=== PATIENT | male | born 1995 | race American Indian/Alaskan Native ===

== ENCOUNTER 2016-07-28 18:41 | Emergency (ER) | payer OTHER ==
--- NOTE | 2016-07-28 19:44 | Emergency Department Report ---
Chief Complaint: Nausea/Vomiting/Diarrhea Stated Complaint: STOMACH VIRUS Time Seen by Provider: 07/28/16 19:43 - HPI History of Present Illness: Patient here reports nausea and vomiting. Patient reports that he has a stomach virus. He said he had a virus before and it feels faint. Denies any diarrhea. Denies any blood in vomit. He said he ate [employer] and that's when it started. He said he vomited 4-5 times today. Complaint abdominal cramping lower abdomen at 8 out of 10. Denies Any urinary burning frequency or urgency. Denies any fever or chills. - ROS Review of Systems: All systems are negative unless stated in HPI above. - Exam Vital Signs: Vital Signs 07/28/16 19:04 Temperature 97.9 F Pulse Rate 75 Respiratory 16 Rate Blood Pressure 135/88 O2 Sat by Pulse 99 Oximetry Physical Exam: General: This is a 21-year-old male well-nourished well-developed in no acute distress. CV: S1, S2. Regular rate and rhythm. Abdomen: Tender to palpate pelvic area. No guarding or rebound tenderness. Normal bowel sounds and negative CVA tenderness MSE screening note: Focused history and physical exam performed. Due to findings the following was ordered:see mdm ED Medical Decision Making - Medical Decision Making Medical decision making: Patient seen by provider in triage area. Appropriate protocol activated and patient to main ED to be seen by physician. ED Disposition for MSE Condition: Stable
[2016-07-28 20:24] LABS: Basophils % (Auto) 0.1 % (0.0-1.8); Eosinophils % (Auto) 0.4 % (0.0-4.3); Hematocrit 54.3 % (35.5-45.6); Hemoglobin 18.2 gm/dl (11.8-15.2); Mean Corpuscular HGB Conc 34 % (32-34); Mean Corpuscular Hemoglobin 31 pg (28-32); Mean Corpuscular Volume 92 fl (84-94); Platelet Count 190 K/mm3 (140-440); Red Blood Count 5.92 M/mm3 (3.65-5.03); Red Cell Distribution Width 13.5 % (13.2-15.2); White Blood Count 8.5 K/mm3 (4.5-11.0)
[2016-07-28 20:53] LABS: BUN/Creatinine Ratio 11.81; Blood Urea Nitrogen 13 mg/dL (9-20); Calcium 9.2 mg/dL (8.4-10.2); Carbon Dioxide 30 mmol/L (22-30); Chloride 100.1 mmol/L (98-107); Glucose 101 mg/dL (75-100); Potassium 4.2 mmol/L (3.6-5.0); Sodium 142 mmol/L (137-145)
[2016-07-28 21:08] LABS: Anion Gap 16 mmol/L
[2016-07-28 21:37] LABS: Bilirubin,Urine NEG (Negative); Blood,Urine NEG (Negative); Ketones,Urine NEG (Negative); Leukocyte Esterase,Urine NEG (Negative); Mucus,Urine 1+ /HPF; Nitrite,Urine NEG (Negative); Protein,Urine <15 mg/dL mg/dL (Negative); Urobilinogen,Urine < 2.0 mg/dL (<2.0)
[2016-07-28] MEDS ORDERED: ZOFRAN ODT ONE (23:00)
[2016-07-28] MEDS ORDERED: ZOFRAN ODT PO ONE (23:02)
[2016-07-29 01:19] VITALS: BP 100/72
--- NOTE | 2016-07-29 02:41 | Emergency Department Report ---
ED N/V/D HPI - General Chief complaint: Nausea/Vomiting/Diarrhea Stated complaint: STOMACH VIRUS Time Seen by Provider: 07/29/16 01:52 Source: patient Mode of arrival: Ambulatory Limitations: No Limitations - History of Present Illness Initial comments: 21-year-old male witha past medical history presents to the hospital complaining of nausea, vomiting, diarrhea that started after eating [employer]. Patient had 3-4 episodes of vomiting and diarrhea. The planes of generalized intermittent 8/10 crampy abdominal pain. Denies hematemesis, fever, melena, or hematochezia. Received Zofran at approximately 11 PM after EMS she reports feeling better - Related Data Previous Rx's Medication Instructions Recorded Last Taken Type Promethazine [Phenergan TAB] 25 mg PO Q6HR PRN #20 tab 07/29/16 Unknown Rx Allergies Allergy/AdvReac Type Severity Reaction Status Date / Time No Known Allergies Allergy Verified 07/28/16 23:03 ED Review of Systems ROS: Stated complaint: STOMACH VIRUS Other details as noted in HPI Comment: All other systems reviewed and negative Other: Constitutional: No fevers chills Eyes: No eye pain visual changes ENT: No ear pain or throat pain Neck: Denies pain Respiratory: Denies cough wheezing shortness of breath Cardiovascular: Denies chest pain, palpitations, syncope GI: As per HPI : Denies dysuria, urinary frequency, or urgency Musculoskeletal: Denies back pain, joint swelling Skin: Denies rash, lesions, erythema Neurologic: Denies headache, numbness, weakness Psychiatric: Denies suicidal ideation, hallucinations ED Past Medical Hx - Past Medical History Previous Medical History?: No - Surgical History Past Surgical History?: No - Social History Smoking Status: Never Smoker Substance Use Type: Alcohol - Medications Home Medications: Home Medications Medication Instructions Recorded Confirmed Last Taken Type Promethazine [Phenergan TAB] 25 mg PO Q6HR PRN #20 tab 07/29/16 Unknown Rx ED Physical Exam - General Limitations: No Limitations - Other Other exam information: General: No limitations, patient is alert in no acute distress Head exam: Atraumatic, normocephalic Eyes exam: Normal appearance, pupils equal reactive to light, extraocular movements intact ENT: Moist mucous membrane, normal oropharynx Neck exam: Normal inspection, full range of motion, no meningismus nontender Respiratory exam: Clear to auscultation bilateral, no wheezes, rales, crackles Cardiovascular: Normal rate and rhythm, normal heart sounds Abdomen: Soft, nondistended, mild lower abdominal tenderness, with normal bowel sounds, no rebound, or guarding Extremity: Full range of motion normal inspection no deformity Back: Normal Inspection, full range of motion, no tenderness Neurologic: Alert, oriented x3, cranial nerves intact, no motor or sensory deficit Psychiatric: normal affect, normal mood Skin: Warm, dry, intact ED Course Vital Signs 07/28/16 07/28/16 07/29/16 19:04 22:59 01:12 Temperature 97.9 F 98.5 F 98.8 F Pulse Rate 75 83 82 Respiratory 16 18 16 Rate Blood Pressure 135/88 Blood Pressure 116/58 100/72 [Right] O2 Sat by Pulse 99 99 98 Oximetry - Reevaluation(s) Reevaluation #1: 07/29/16 02:39 Patient tolerated fluid intake reports pain is minimal ED Medical Decision Making - Lab Data Result diagrams: 07/28/16 20:00 07/28/16 20:00 Lab Results 07/28/16 07/28/16 07/28/16 Range/Units 20:00 20:00 20:56 WBC 8.5 (4.5-11.0) K/mm3 RBC 5.92 H (3.65-5.03) M/mm3 Hgb 18.2 H (11.8-15.2) gm/dl Hct 54.3 H (35.5-45.6) % MCV 92 (84-94) fl MCH 31 (28-32) pg MCHC 34 (32-34) % RDW 13.5 (13.2-15.2) % Plt Count 190 (140-440) K/mm3 Lymph % (Auto) 10.8 L (13.4-35.0) % [place] % (Auto) 6.4 (0.0-7.3) % Eos % (Auto) 0.4 (0.0-4.3) % Baso % (Auto) 0.1 (0.0-1.8) % Lymph # 0.9 L (1.2-5.4) K/mm3 [place] # 0.5 (0.0-0.8) K/mm3 Eos # 0.0 (0.0-0.4) K/mm3 Baso # 0.0 (0.0-0.1) K/mm3 Seg Neutrophils % 82.3 H (40.0-70.0) % Seg Neutrophils # 7.0 (1.8-7.7) K/mm3 Sodium 142 (137-145) mmol/L Potassium 4.2 (3.6-5.0) mmol/L Chloride 100.1 (98-107) mmol/L Carbon Dioxide 30 (22-30) mmol/L Anion Gap 16 mmol/L BUN 13 (9-20) mg/dL Creatinine 1.1 (0.8-1.5) mg/dL Estimated GFR > 60 ml/min BUN/Creatinine Ratio 11.81 % Glucose 101 H (75-100) mg/dL Calcium 9.2 (8.4-10.2) mg/dL Urine Color Yellow (Yellow) Urine Turbidity Clear (Clear) Urine pH 6.0 (5.0-7.0) Ur Specific Dickinson 1.027 (1.003-1.030) Urine Protein <15 mg/dl (Negative) mg/dL Urine Glucose (UA) Neg (Negative) mg/dL Urine Ketones Neg (Negative) mg/dL Urine Blood Neg (Negative) Urine Nitrite Neg (Negative) Urine Bilirubin Neg (Negative) Urine Urobilinogen < 2.0 (<2.0) mg/dL Ur Leukocyte Esterase Neg (Negative) Urine WBC (Auto) 1.0 (0.0-6.0) /HPF Urine RBC (Auto) 2.0 (0.0-6.0) /HPF Urine Mucus 1+ /HPF - Medical Decision Making Patient's diagnoses he is also poisoning versus gastroenteritis. Tolerated by mouth intake after receiving the Zofran. Patient does have mild dehydration without ketosis or tachycardia therefore oral hydration will be encouraged. - Differential Diagnosis food poisoning, gastroenteritis, appendicitis, Critical Care Time: No Critical care attestation.: If time is entered above; I have spent that time in minutes in the direct care of this critically ill patient, excluding procedure time. ED Disposition Clinical Impression: Gastroenteritis Disposition: DISCHARGED TO HOME OR SELFCARE Is pt being admited?: No Does the pt Need Aspirin: No Condition: Stable Instructions: Food Poisoning (ED) Additional Instructions: Take the medication as prescribed. Return if symptoms worsen. Continue To drink plenty of fluids at home Prescriptions: Promethazine [Phenergan TAB] 25 mg PO Q6HR PRN #20 tab PRN Reason: Nausea Referrals: PRIMARY CARE, [Primary Care Provider] - 3-5 Days [facility] [Provider Group] - 3-5 Days Time of Disposition: 02:40
== END 2016-07-29 02:55 | disposition home or self-care (01) ==
LOC: ED 18:41
DX: K52.9 Noninfective gastroenteritis and colitis, unspecified (principal)
CPT/HCPCS: 36415; 80048; 81001; 82962; 85025; 99283; Q0162

== ENCOUNTER 2017-09-22 20:55 | Emergency (ER) | payer OTHER ==
[2017-09-22 22:30] VITALS: BP 136/77
--- NOTE | 2017-09-23 00:42 | Emergency Department Report ---
Minor Respiratory - HPI Chief Complaint: Upper Respiratory Infection Stated Complaint: VOMITING,BODY ACHE Time Seen by Provider: 09/23/17 00:39 Duration: 3 Days Pain Location: Other (generalized body ache 10/10) Severity: severe Minor Respiratory: Yes Able to Tolerate Fluids, Yes Cough, Yes Fever (low-grade fever with MAXIMUM TEMPERATURE of 100), No Rhinorrhea (Nasal congestion), No Sore Throat, No Ear Pain, No Sick Contacts, No Hemoptysis, No Chest Pain, No Shortness of Breath Other History: Patient here complaining of flulike symptoms to include cough, fever, congestion and vomiting 3 days. Patient said he vomited 1 today. Denies any diarrhea. He said symptoms started yesterday. He is having body aches 10 out of 10 that was achy no alleviating factor no aggravating factor. No medication taken. Denies any chest pain or shortness of breath. Dry cough. He is able to tolerate liquids this evening. ED Review of Systems ROS: Stated complaint: VOMITING,BODY ACHE Other details as noted in HPI Comment: All other systems reviewed and negative Constitutional: chills, fever Eyes: denies: eye pain, eye discharge ENT: congestion. denies: ear pain, throat pain, dental pain, hearing loss, epistaxis Respiratory: cough. denies: orthopnea, shortness of breath, SOB with exertion, SOB at rest, stridor, wheezing Cardiovascular: denies: chest pain, palpitations, dyspnea on exertion, edema, syncope, paroxysmal nocturnal dyspnea Gastrointestinal: vomiting. denies: abdominal pain, nausea, diarrhea, constipation, hematemesis, melena, hematochezia Genitourinary: denies: dysuria, hematuria Musculoskeletal: myalgia. denies: back pain, joint swelling, arthralgia Skin: denies: rash Neurological: denies: headache, weakness, numbness, paresthesias, confusion, abnormal gait, vertigo ED Past Medical Hx - Past Medical History Previous Medical History?: No - Surgical History Past Surgical History?: No - Family History Family history: no significant - Social History Smoking Status: Never Smoker Substance Use Type: None - Medications Home Medications: Home Medications Medication Instructions Recorded Confirmed Last Taken Type Cetirizine HCl [ZyrTEC] 10 mg PO QAM 14 Days #14 capsule 09/23/17 Unknown Rx Fluticasone [Flonase] 1 spray NS QDAY 14 Days #1 bottle 09/23/17 Unknown Rx Ibuprofen [Motrin] 600 mg PO Q6H PRN #12 tablet 09/23/17 Unknown Rx Promethazine [Phenergan TAB] 25 mg PO Q6HR PRN #20 tab 09/23/17 Unknown Rx Minor Respiratory Exam - Exam General: Vital signs noted. No distress. Alert and acting appropriately. This is a 22-year-old male well-nourished well-developed in no acute distress. HEENT: Yes Moist Mucous Membranes (uvula is midline and oral airways patent), Yes Rhinorrhea (nasal congestion with clear drainage), No Pharyngeal Erythema, No Pharyngeal Exudates, No Conjuctival Injection, No Frontal Tenderness, No Maxillary Tenderness Ear: Neither TM Bulge (bilateral TM congested), Neither TM Erythema, Neither EAC Pain, Neither EAC Discharge Neck: Yes Supple (full range of motion, no C-spine tenderness), No Adenopathy Lungs: Yes Good Air Exchange, Yes Cough (dry cough), No Wheezes, No Ronchi, No Stridor, No Retractions, No Use of Accessory Muscles, No Other Abnormal Lung Sounds Heart: Yes Regular (S1, S2. Regular rate rhythm), No Murmur Abdomen: Yes Tenderness (nontender to palpate in all quadrants.), Yes Normal Bowel Sounds (normal bowel sounds in all quadrants), No Peritoneal Signs Skin: No Rash, No Edema Neurologic: Alert and oriented, no deficits. Alert and oriented 3, GCS of 15. Speech is clear and fluid. Normal gait. Musculoskeletal: Unremarkable. Extremity: No clubbing, cyanosis or edema. +2 pulses to all extremities. ED Course Vital Signs 09/22/17 22:28 Temperature 99.0 F Pulse Rate 61 Respiratory 17 Rate Blood Pressure 136/77 O2 Sat by Pulse 98 Oximetry - Reevaluation(s) Reevaluation #1: 09/23/17 02:25 She received Motrin 800 mg by mouth in the emergency room which relieved his pain and Zofran 8 mg ODT without any vomiting in emergency room. He is able to tolerate several cups of juice without any vomiting or diarrhea. ED Medical Decision Making - Medical Decision Making ED course: Patient here complaining of flulike symptoms and found to have upper respiratory infection with cough and congestion which is viral in nature. He also reports nausea with vomiting. Patient was treated in emergency room with Motrin 800 mg for generalized aching in and Zofran 8 mg ODT. Patient able to tolerate oral liquids in the emergency room. I discussed with him that he needs to rest for 72 hours and increase his fluid intake to include water and orange juice intake vitamin C. I also discussed with him he needs to take Motrin as prescribed for fever and or body aches. He voiced understanding the discharge diagnosis and treatment plan and I discussed with him he needs to follow-up with [facility] as he does not have a primary care physician in 2 days and/or return to the emergency room if his symptoms worsens. Patient discharged home a prescription for Motrin, Phenergan, Zyrtec and Flonase. Critical care attestation.: If time is entered above; I have spent that time in minutes in the direct care of this critically ill patient, excluding procedure time. ED Disposition Clinical Impression: URI with cough and congestion, Body aches Nausea & vomiting Qualifiers: Vomiting type: unspecified Vomiting Intractability: non-intractable Qualified Code(s): R11.2 - Nausea with vomiting, unspecified Disposition: DC-01 TO HOME OR SELFCARE Is pt being admited?: No Does the pt Need Aspirin: No Condition: Stable Instructions: Viral Syndrome (ED), Acute Nausea and Vomiting (ED), Acute Cough (ED) Additional Instructions: Please take Motrin as prescribed for fever and or body aches. Take every 6 hours 2 days and then as needed. Take this medication with food as it can cause irritation T his stomach lining. Take Zyrtec and Flonase and this will help with congestion. Take Phenergan to prevent nausea and vomiting.Be aware that Phenergan can cause drowsiness so please do not drive or operate heavy machinery with this medication. Prescriptions: Cetirizine HCl [ZyrTEC] 10 mg PO QAM 14 Days #14 capsule Fluticasone [Flonase] 1 spray NS QDAY 14 Days #1 bottle Ibuprofen [Motrin] 600 mg PO Q6H PRN #12 tablet PRN Reason: Pain Promethazine [Phenergan TAB] 25 mg PO Q6HR PRN #20 tab PRN Reason: Nausea And Vomiting Referrals: [facility] [Outside] - 2-3 Days Forms: Work/School Release Form(ED), Accompanied Note
[2017-09-23] MEDS ORDERED: ZOFRAN ODT PO ONE (00:43)
[2017-09-23] MEDS ORDERED: MOTRIN PO ONE (00:43)
== END 2017-09-23 02:40 | disposition home or self-care (01) ==
LOC: ED 20:55
DX: J06.9 Acute upper respiratory infection, unspecified (principal); R11.2 Nausea with vomiting, unspecified
CPT/HCPCS: 99282; Q0162

== ENCOUNTER 2017-12-07 11:41 | Emergency (ER) | payer OTHER ==
[2017-12-07 11:50] VITALS: BP 133/73
[2017-12-07 12:26] LABS: Bacteria,Urine 1+ /HPF (Negative); Bilirubin,Urine NEG (Negative); Blood,Urine NEG (Negative); Color,Urine Yellow (Yellow); Mucus,Urine FEW /HPF; Protein,Urine <15 mg/dL mg/dL (Negative); Urobilinogen,Urine < 2.0 mg/dL (<2.0)
[2017-12-07] MEDS ORDERED: ROCEPHIN IM ONE (13:37)
[2017-12-07] MEDS ORDERED: ZITHROMAX PO ONE (13:37)
[2017-12-07] MEDS ORDERED: XYLOCAINE 1% MPF 5 mL INFILTRATI ONE (13:37)
[2017-12-07] MEDS ORDERED: FLAGYL PO ONE (13:37)
--- NOTE | 2017-12-07 13:45 | Emergency Department Report ---
ED Male HPI - General Chief complaint: Urogenital-Male Stated complaint: LOWER ABDOMINAL PAIN Time Seen by Provider: 12/07/17 13:31 Source: patient Mode of arrival: Ambulatory Limitations: No Limitations - History of Present Illness Initial comments: 22-year-old male with a past medical history reports having dysuria and urinary frequency for the past 5 days and developed white penile discharge today. He reports that his sexual partner was recently diagnosed with UTI. They do not use condoms. No fevers or difficulty urinating reported. - Related Data Previous Rx's Medication Instructions Recorded Last Taken Type Cetirizine HCl [ZyrTEC] 10 mg PO QAM 14 Days #14 capsule 09/23/17 Unknown Rx Fluticasone [Flonase] 1 spray NS QDAY 14 Days #1 bottle 09/23/17 Unknown Rx Ibuprofen [Motrin] 600 mg PO Q6H PRN #12 tablet 09/23/17 Unknown Rx Promethazine [Phenergan TAB] 25 mg PO Q6HR PRN #20 tab 09/23/17 Unknown Rx Allergies Allergy/AdvReac Type Severity Reaction Status Date / Time No Known Allergies Allergy Verified 07/28/16 23:03 ED Review of Systems ROS: Stated complaint: LOWER ABDOMINAL PAIN Other details as noted in HPI Comment: All other systems reviewed and negative ED Past Medical Hx - Past Medical History Previous Medical History?: No - Surgical History Past Surgical History?: No - Social History Smoking Status: Never Smoker Substance Use Type: None - Medications Home Medications: Home Medications Medication Instructions Recorded Confirmed Last Taken Type Cetirizine HCl [ZyrTEC] 10 mg PO QAM 14 Days #14 capsule 09/23/17 Unknown Rx Fluticasone [Flonase] 1 spray NS QDAY 14 Days #1 bottle 09/23/17 Unknown Rx Ibuprofen [Motrin] 600 mg PO Q6H PRN #12 tablet 09/23/17 Unknown Rx Promethazine [Phenergan TAB] 25 mg PO Q6HR PRN #20 tab 09/23/17 Unknown Rx ED Physical Exam - General Limitations: No Limitations - Other Other exam information: General: No limitations, patient is alert in no acute distress Head exam: Atraumatic, normocephalic Eyes exam: Normal appearance ENT: Moist mucous membrane, normal oropharynx Neck exam: Normal inspection, full range of motion Respiratory exam: Clear to auscultation bilateral, no wheezes, rales, crackles Cardiovascular: Normal rate and rhythm, normal heart sounds Abdomen: Soft, nondistended, and nontender, with normal bowel sounds, no rebound, or guarding : Circumcised, white penile discharge, no testicular pain or swelling, no epididymal tenderness, no external lesions Extremity: Full range of motion normal inspection no deformity Back: Normal Inspection, full range of motion, no tenderness Neurologic: Alert, oriented x3, cranial nerves intact, no motor or sensory deficit Psychiatric: normal affect, normal mood Skin: Warm, dry, intact ED Course Vital Signs 12/07/17 11:46 Temperature 98.3 F Pulse Rate 61 Blood Pressure 133/73 O2 Sat by Pulse 95 Oximetry - Reevaluation(s) Reevaluation #1: 12/07/17 13:41 Patient will be treated with Rocephin, azithromycin, and Flagyl to cover for gonorrhea, chlamydia, and trichomonas ED Medical Decision Making - Medical Decision Making Patient is a sexually active male less than 35 years old with white penile discharge. He'll be empirically treated for gonorrhea, Chlamydia, and Trichomonas and gonorrhea and chlamydia and urine culture pending at disposition. - Differential Diagnosis STD urethritis, UTI Critical Care Time: No Critical care attestation.: If time is entered above; I have spent that time in minutes in the direct care of this critically ill patient, excluding procedure time. ED Disposition Clinical Impression: Urethritis, Concern about STD in male without diagnosis Disposition: DC-01 TO HOME OR SELFCARE Is pt being admited?: No Does the pt Need Aspirin: No Condition: Stable Instructions: Gonococcal Urethritis (ED), Nonspecific Urethritis in Men (ED) Additional Instructions: You were treated for STD related urethritis however, diagnosis has not been confirmed since the culture results are still pending at time of your discharge. Your gonorrhea and chlamydia tests are pending and take approximately 3-4 days result. You may obtain results in medical records with a photo ID. You may also obtain results through the follow-up doctor office via medical record request. Your sexual partner will also know need treatment for STDs. Both of you should abstain from intercourse until 7 days after therapy is initiated and symptom resolution and after both of you have been treated. Referrals: PRIMARY CARE [Primary Care Provider] - 3-5 Days [facility] [Provider Group] - 3-5 Days Forms: STI Treatment and Prevention Time of Disposition: 13:45 (d/c after meds)
== END 2017-12-07 14:05 | disposition home or self-care (01) ==
LOC: ED 11:41
DX: N34.2 Other urethritis (principal); Z20.2 Contact with and (suspected) exposure to infections with a predominantly sexual mode of transmission
CPT/HCPCS: 81001; 87086; 87591; 96372; 99283; J0696